=== PATIENT | male | born 1955 | race African-American/Black ===

== ENCOUNTER 2021-04-02 05:42 | Inpatient (IN) | payer MEDICAID, OTHER ==
[2021-04-02] VITALS (29 sets, daily range): BP systolic 87–146; BP diastolic 46–84
[~2021-04-02] VITALS: Ht 180.3 cm; Wt 79.4 kg
[2021-04-02 07:08] LABS: CHLORIDE 106 mEq/L (98-107)
[2021-04-02 07:11] LABS: BASOPHILS % 0.4 % (0.0-2.0); EOSINOPHILS % 0.8 % (0.0-5.0); HEMATOCRIT. 39.6 % (42.0-52.0); HEMOGLOBIN. 12.9 g/dL (14.0-18.0); MEAN CORPUSCULAR HEMOGLOBIN 28.2 pg (28.0-32.0); MEAN CORPUSCULAR VOLUME 86.4 fL (80.0-94.0); MEAN PLATELET VOLUME 9.8 fl (7.4-10.4); MONOCYTES % 8.2 % (2.0-8.0); NEUTROPHILS % 67.6 % (40.0-76.0); PLATELET 168 x1000/uL (130-400); RED BLOOD CELL COUNT 4.58 mill/uL (4.7-6.1); RED CELL DISTRIBUTION WIDTH 12.5 % (11.6-14.6)
[2021-04-02 07:13] LABS: PARTIAL THROMBOPLASTIN TIME 26.2 sec (23.4-31.0); PROTHROMBIN TIME 10.9 sec (9.6-11.0)
[2021-04-02 07:17] LABS: CLARITY URINE CLEAR (CLEAR); COLOR URINE YELLOW (YELLOW); KETONES URINE NEGATIVE (NEGATIVE); LEUKOCYTE ESTERASE URINE TRACE (NEGATIVE); NITRITE URINE NEGATIVE (NEGATIVE); OCCULT BLOOD URINE NEGATIVE (NEGATIVE); PROTEIN URINE 2+ (NEGATIVE); SPECIFIC GRAVITY URINE 1.025 (1.005-1.030)
[2021-04-02] MEDS ORDERED: SODIUM CHLORIDE 0.9% 1,000 ML IV SCH (07:55)
[2021-04-02] MEDS ORDERED: TRAM50TA3 PO (07:59)
[2021-04-02] MEDS ORDERED: GLIP10TA10 PO (07:59)
[2021-04-02] MEDS ORDERED: ASPI-1497 PO (07:59)
[2021-04-02] MEDS ORDERED: AMLO10TA80 PO (07:59)
[2021-04-02] MEDS ORDERED: ERTU15TA PO (07:59)
[2021-04-02] MEDS ORDERED: FURO40TA5 PO (07:59)
[2021-04-02] MEDS ORDERED: LOSA100T32 PO (07:59)
[2021-04-02] MEDS ORDERED: HYDR-4009 PO (08:12)
[2021-04-02] MEDS ORDERED: LIDOCAINE HCL/EPINEPHRINE 1%-EPI 1:100,000 20 ML VIAL INFIL SCH (11:00)
[2021-04-02] MEDS ORDERED: THROMBIN (BOVINE) 5000 UNITS/VIAL TOP ONE (11:05)
[2021-04-02] MEDS ORDERED: BACITRACIN 50,000 UNITS/VIAL ONE (11:07)
[2021-04-02] MEDS ORDERED: FENTANYL CITRATE/PF 50MCG/ML 2ML VIAL ONE (13:04)
[2021-04-02] MEDS ORDERED: SUCCINYLCHOLINE CHLORIDE 200MG/10ML IV ONE (13:04)
[2021-04-02] MEDS ORDERED: NEOSTIGMINE METHYLSULFATE 1MG/ML 10 ML VIAL ONE (13:04)
[2021-04-02] MEDS ORDERED: PROPOFOL 200MG/20ML VIAL IV ONE (13:04)
[2021-04-02] MEDS ORDERED: PHENYLEPHRINE HCL 10 MG/ML 1ML (IV VIAL) IV ONE (13:04)
[2021-04-02] MEDS ORDERED: SODIUM CHLORIDE 0.9% 10ML VIAL ONE (13:04)
[2021-04-02] MEDS ORDERED: CEFAZOLIN SODIUM 1000MG/VIAL ONE (13:04)
[2021-04-02] MEDS ORDERED: MIDAZOLAM HCL 2 MG/2 ML VIAL ONE (13:04)
[2021-04-02] MEDS ORDERED: DEXAMETHASONE 4MG/ML 1ML VIAL ONE ×2 (13:04→13:06)
[2021-04-02] MEDS ORDERED: METOCLOPRAMIDE HCL 10MG/2ML VIAL ONE (13:04)
[2021-04-02] MEDS ORDERED: ROCURONIUM BROMIDE 10MG/ML VIAL 5ML IV ONE ×2 (13:04→13:35)
[2021-04-02] MEDS ORDERED: ONDANSETRON HCL 4MG/2ML INJ ONE (13:04)
[2021-04-02] MEDS ORDERED: GLYCOPYRROLATE 0.2 MG/ML 2ML VIAL ONE (13:04)
[2021-04-02] MEDS ORDERED: HYDROMORPHONE HCL/PF 2MG/ML (OR) ONE (13:45)
[2021-04-02] MEDS ORDERED: LABETALOL HCL 5MG/ML VIAL 20ML IV ONE (15:20)
[2021-04-02] MEDS ORDERED: NALOXONE HCL 0.4MG/ML VIAL IV PRN (15:45)
[2021-04-02] MEDS: DEXT 5%/LACTATED RINGERS 1,000 ML IV SCH ×2 (16:41→23:13)
[2021-04-02] MEDS ORDERED: NICARDIPINE 100 MG in SODIUM CHLORIDE 0.9% 60 ML IV PRN (17:05)
[2021-04-02] MEDS ORDERED: ONDANSETRON HCL 4MG/2ML INJ IV PRN (17:15)
[2021-04-02] MEDS ORDERED: DIPHENHYDRAMINE 50MG/ML VIAL IV PRN (17:15)
[2021-04-02] MEDS ORDERED: DEXTROSE 50% WATER 50ML SYRINGE IV PRN (17:30)
[2021-04-02] MEDS ORDERED: IPRATROPIUM/ALBUTEROL 0.5-3(2.5)MG/3ML NEB HHN PRN (17:45)
[2021-04-02 19:02] LABS: BG BASE EXCESS -7.1 mmol/L (-2.0-2.0); BG CARBOXYHEMOGLOBIN 0.3 % (0.5-1.5); BG DEOXYHEMOGLOBIN 0.8 % (0.0-5.0); BG FRACTION INSPIRED OXYGEN 50; BG HCO3 ACT 19.1 mmol/L (22.0-26.0); BG METHEMOGLOBIN 0.4 % (0.0-1.5); BG OXYGEN SATURATION 99.2 % (92.0-98.5); BG OXYHEMOGLOBIN 98.5 % (94.0-97.0); BG PCO2 40.8 mmHg (35.0-45.0); BG PH 7.288 (7.350-7.450); BG PO2 223.8 mmHg (75.0-100.0); BG SAMPLE SITE ALINE; BG TOTAL HEMOGLOBIN 13.6 g/dL (12.0-18.0); BG VENT MODE VENT - CPAP
[2021-04-02] MEDS: MORPHINE SULFATE 4 MG/ML CPJ (NOT FOR IM USE) IV PRN (19:23)
[2021-04-02] MEDS ORDERED: NALOXONE INJ IV PRN (20:00)
[2021-04-02] MEDS ORDERED: HYDROMORPHONE PCA 10MG/50ML IV PRN (20:00)
[2021-04-02] MEDS ORDERED: DIPHENHYDRAMINE INJ IV PRN (20:00)
[2021-04-02] MEDS ORDERED: ONDANSETRON INJ IV PRN (20:00)
[2021-04-02] MEDS: BLOOD SUGAR DIAGNOSTIC STRIP TEST SCH (20:53)
[2021-04-02] MEDS: CEFAZOLIN 1000MG PREMIX 50 ML IV SCH (21:51)
[2021-04-02] MEDS: INSULIN LISPRO 100 UNITS/ML SUBCUT SCH (21:52)
[2021-04-02] MEDS ORDERED: CEFAZOLIN SODIUM 1000MG/VIAL IV SCH (22:00)
[2021-04-03] VITALS (35 sets, daily range): BP systolic 116–152; BP diastolic 47–90
[2021-04-03] MEDS: CLONIDINE 0.1MG TABLET PO PRN (04:58)
[2021-04-03 05:34] LABS: HEMATOCRIT. 33.7 % (42.0-52.0); HEMOGLOBIN. 10.9 g/dL (14.0-18.0); MEAN CORPUSCULAR HEMOGLOBIN 28.1 pg (28.0-32.0); MEAN CORPUSCULAR VOLUME 86.9 fL (80.0-94.0); MEAN PLATELET VOLUME 10.2 fl (7.4-10.4); PLATELET 167 x1000/uL (130-400); RED BLOOD CELL COUNT 3.88 mill/uL (4.7-6.1); RED CELL DISTRIBUTION WIDTH 12.4 % (11.6-14.6)
[2021-04-03 05:36] LABS: CHLORIDE 110 mEq/L (98-107)
[2021-04-03 05:44] LABS: LDL CHOLESTEROL 46 mg/dL (5-100)
[2021-04-03 05:45] LABS: HDL CHOLESTEROL 43 mg/dL (40-59)
[2021-04-03] MEDS: BLOOD SUGAR DIAGNOSTIC STRIP TEST SCH ×5 (06:03→21:14)
[2021-04-03] MEDS: CEFAZOLIN 1000MG PREMIX 50 ML IV SCH ×3 (06:07→22:22)
[2021-04-03] MEDS: INSULIN LISPRO 100 UNITS/ML SUBCUT SCH ×5 (06:08→22:22)
[2021-04-03] MEDS: DEXT 5%/LACTATED RINGERS 1,000 ML IV SCH ×3 (08:00→23:14)
[2021-04-03] MEDS ORDERED: PNEUMOCOCCAL 23-VAL P-SAC VAC 0.5 ML IM ONE (08:00)
[2021-04-03 20:43] LABS: PLATELET ESTIMATE NORMAL
[2021-04-04] VITALS: BP 105/69
[2021-04-04 04:00] VITALS: BP 179/85
[2021-04-04] MEDS: CLONIDINE 0.1MG TABLET PO PRN ×2 (05:53→22:00)
[2021-04-04] MEDS: CEFAZOLIN 1000MG PREMIX 50 ML IV SCH ×2 (05:56→13:57)
[2021-04-04 06:34] LABS: CHLORIDE 108 mEq/L (98-107)
[2021-04-04 06:46] LABS: BASOPHILS % 0.2 % (0.0-2.0); HEMATOCRIT. 31.6 % (42.0-52.0); HEMOGLOBIN. 10.4 g/dL (14.0-18.0); LYMPHOCYTES % 9.2 % (20.0-50.0); MEAN CORPUSCULAR HEMOGLOBIN 28.4 pg (28.0-32.0); MEAN CORPUSCULAR VOLUME 86.6 fL (80.0-94.0); MEAN PLATELET VOLUME 10.3 fl (7.4-10.4); MONOCYTES % 7.9 % (2.0-8.0); NEUTROPHILS % 82.7 % (40.0-76.0); PLATELET 170 x1000/uL (130-400); RED BLOOD CELL COUNT 3.65 mill/uL (4.7-6.1); RED CELL DISTRIBUTION WIDTH 12.9 % (11.6-14.6)
[2021-04-04] MEDS: BLOOD SUGAR DIAGNOSTIC STRIP TEST SCH ×4 (07:40→21:00)
[2021-04-04 08:00] VITALS: BP 153/75
[2021-04-04] MEDS: DEXT 5%/LACTATED RINGERS 1,000 ML IV SCH (08:00)
[2021-04-04] MEDS: INSULIN LISPRO 100 UNITS/ML SUBCUT SCH ×4 (09:08→22:59)
[2021-04-04 12:00] VITALS: BP 123/60
[2021-04-04 16:00] VITALS: BP 150/70
[2021-04-04] MEDS ORDERED: BISACODYL 5MG TABLET PO PRN (17:30)
[2021-04-04] MEDS: DOCUSATE SODIUM 100MG CAPSULE PO SCH (18:07)
[2021-04-04 20:00] VITALS: BP 163/75
[2021-04-05] VITALS: BP 158/85
[2021-04-05 04:00] VITALS: BP 153/70
[2021-04-05] MEDS: AMLODIPINE 10MG TABLET PO SCH (04:34)
[2021-04-05] MEDS: BLOOD SUGAR DIAGNOSTIC STRIP TEST SCH ×4 (06:41→20:46)
[2021-04-05 08:05] LABS: CHLORIDE 107 mEq/L (98-107)
[2021-04-05] MEDS ORDERED: ACETAMINOPHEN 325MG TABLET PO PRN (08:30)
[2021-04-05] MEDS: DOCUSATE SODIUM 100MG CAPSULE PO SCH ×2 (08:58→17:46)
[2021-04-05] MEDS: FAMOTIDINE 20MG TABLET PO SCH ×2 (08:58→20:46)
[2021-04-05] MEDS: INSULIN LISPRO 100 UNITS/ML SUBCUT SCH ×4 (09:03→20:55)
[2021-04-05 10:38] LABS: BASOPHILS % 0.3 % (0.0-2.0); EOSINOPHILS % 0.1 % (0.0-5.0); HEMATOCRIT. 30.9 % (42.0-52.0); HEMOGLOBIN. 9.9 g/dL (14.0-18.0); LYMPHOCYTES % 12.3 % (20.0-50.0); MEAN CORPUSCULAR HEMOGLOBIN 27.9 pg (28.0-32.0); MEAN PLATELET VOLUME 9.7 fl (7.4-10.4); NEUTROPHILS % 78.3 % (40.0-76.0); RED BLOOD CELL COUNT 3.55 mill/uL (4.7-6.1); RED CELL DISTRIBUTION WIDTH 12.5 % (11.6-14.6)
[2021-04-05 10:42] LABS: PLATELET 174 x1000/uL (130-400)
[2021-04-05 12:00] VITALS: BP 152/71
[2021-04-05] MEDS: CLONIDINE 0.1MG TABLET PO PRN (13:36)
[2021-04-05] MEDS: HYDROCODONE/ACETAMINOPHEN 5/325MG TABLET PO PRN ×2 (13:37→17:49)
[2021-04-05 16:00] VITALS: BP 146/69
[2021-04-05] MEDS ORDERED: POLYETHYLENE GLYCOL 3350 (17GM) 1 DOSE PACK PO NR (17:30)
[2021-04-05] MEDS: MORPHINE SULFATE 4 MG/ML CPJ (NOT FOR IM USE) IV PRN (23:49)
[2021-04-06] VITALS: BP 147/73
[2021-04-06] MEDS: HYDROCODONE/ACETAMINOPHEN 5/325MG TABLET PO PRN ×5 (01:42→19:04)
[2021-04-06 04:00] VITALS: BP 132/62
[2021-04-06] MEDS: BLOOD SUGAR DIAGNOSTIC STRIP TEST SCH ×4 (07:02→21:36)
[2021-04-06 08:00] VITALS: BP 162/66
[2021-04-06] MEDS: DOCUSATE SODIUM 100MG CAPSULE PO SCH ×2 (09:48→17:29)
[2021-04-06] MEDS: BISACODYL 5MG TABLET PO SCH (09:49)
[2021-04-06] MEDS: FAMOTIDINE 20MG TABLET PO SCH ×2 (09:49→21:44)
[2021-04-06] MEDS: AMLODIPINE 10MG TABLET PO SCH (09:49)
[2021-04-06] MEDS: INSULIN LISPRO 100 UNITS/ML SUBCUT SCH ×4 (09:54→21:45)
[2021-04-06 12:00] VITALS: BP 122/52
[2021-04-06 16:00] VITALS: BP 152/60
[2021-04-06] MEDS ORDERED: LACTULOSE 20G/30ML UDC PO NR (16:30)
[2021-04-06] MEDS ORDERED: LACTULOSE 20G/30ML UDC PO PRN (16:30)
[2021-04-06] MEDS: CLONIDINE 0.1MG TABLET PO PRN (17:29)
[2021-04-06] MEDS: METFORMIN HCL 500MG TABLET PO SCH (17:29)
[2021-04-06 20:00] VITALS: BP 159/72
[2021-04-07] VITALS: BP 156/72
[2021-04-07 04:00] VITALS: BP 165/96
[2021-04-07] MEDS: MORPHINE SULFATE 4 MG/ML CPJ (NOT FOR IM USE) IV PRN ×4 (04:06→21:48)
[2021-04-07] MEDS: CLONIDINE 0.1MG TABLET PO PRN ×3 (04:07→18:13)
[2021-04-07] MEDS: BLOOD SUGAR DIAGNOSTIC STRIP TEST SCH ×4 (07:39→21:24)
[2021-04-07 08:00] VITALS: BP 152/68
[2021-04-07] MEDS: BISACODYL 5MG TABLET PO SCH (08:49)
[2021-04-07] MEDS: METFORMIN HCL 500MG TABLET PO SCH ×2 (08:50→18:06)
[2021-04-07] MEDS: DOCUSATE SODIUM 100MG CAPSULE PO SCH ×2 (08:50→18:06)
[2021-04-07] MEDS: FAMOTIDINE 20MG TABLET PO SCH ×2 (08:50→21:24)
[2021-04-07] MEDS: AMLODIPINE 10MG TABLET PO SCH (08:53)
[2021-04-07] MEDS: INSULIN LISPRO 100 UNITS/ML SUBCUT SCH ×4 (09:04→21:00)
[2021-04-07] MEDS: LOSARTAN POTASSIUM 50 MG TABLET PO SCH (12:56)
[2021-04-07 16:00] VITALS: BP 153/78
[2021-04-07 20:37] VITALS: BP 141/81
[2021-04-08 00:43] VITALS: BP 160/60
[2021-04-08] MEDS: CLONIDINE 0.1MG TABLET PO PRN ×3 (00:47→13:41)
[2021-04-08] MEDS: HYDROCODONE/ACETAMINOPHEN 5/325MG TABLET PO PRN ×2 (00:47→06:26)
[2021-04-08 04:00] VITALS: BP 152/72
[2021-04-08] MEDS: MORPHINE SULFATE 4 MG/ML CPJ (NOT FOR IM USE) IV PRN ×6 (04:16→22:27)
[2021-04-08 06:39] LABS: BASOPHILS % 0.4 % (0.0-2.0); EOSINOPHILS % 0.9 % (0.0-5.0); HEMATOCRIT. 27.7 % (42.0-52.0); HEMOGLOBIN. 9.2 g/dL (14.0-18.0); LYMPHOCYTES % 13.6 % (20.0-50.0); MEAN CORPUSCULAR HEMOGLOBIN 28.9 pg (28.0-32.0); MEAN CORPUSCULAR VOLUME 87.5 fL (80.0-94.0); MONOCYTES % 10.6 % (2.0-8.0); NEUTROPHILS % 74.5 % (40.0-76.0); PLATELET 220 x1000/uL (130-400); RED BLOOD CELL COUNT 3.17 mill/uL (4.7-6.1); RED CELL DISTRIBUTION WIDTH 13.2 % (11.6-14.6)
[2021-04-08 07:00] LABS: CHLORIDE 106 mEq/L (98-107)
[2021-04-08] MEDS: BLOOD SUGAR DIAGNOSTIC STRIP TEST SCH ×4 (07:50→20:32)
[2021-04-08] MEDS: INSULIN LISPRO 100 UNITS/ML SUBCUT SCH ×4 (07:50→20:32)
[2021-04-08 08:00] VITALS: BP 109/68
[2021-04-08] MEDS: DOCUSATE SODIUM 100MG CAPSULE PO SCH ×2 (08:05→18:18)
[2021-04-08] MEDS: FAMOTIDINE 20MG TABLET PO SCH ×2 (08:05→20:32)
[2021-04-08] MEDS: BISACODYL 5MG TABLET PO SCH (08:05)
[2021-04-08] MEDS: AMLODIPINE 10MG TABLET PO SCH (08:05)
[2021-04-08] MEDS: METFORMIN HCL 500MG TABLET PO SCH ×2 (08:05→18:18)
[2021-04-08] MEDS: LOSARTAN POTASSIUM 50 MG TABLET PO SCH (08:05)
[2021-04-08] MEDS: SODIUM CHLORIDE 0.9% 1,000 ML IV SCH (12:19)
[2021-04-08 16:00] VITALS: BP 138/69
[2021-04-08 20:21] VITALS: BP 130/71
[2021-04-09] MEDS: SODIUM CHLORIDE 0.9% 1,000 ML IV SCH ×2 (00:42→11:58)
[2021-04-09] MEDS: HYDROCODONE/ACETAMINOPHEN 5/325MG TABLET PO PRN ×2 (00:44→23:26)
[2021-04-09 02:38] VITALS: BP 149/71
[2021-04-09 05:24] VITALS: BP 150/74
[2021-04-09] MEDS: MORPHINE SULFATE 4 MG/ML CPJ (NOT FOR IM USE) IV PRN ×6 (05:38→21:08)
[2021-04-09] MEDS: BLOOD SUGAR DIAGNOSTIC STRIP TEST SCH ×4 (07:20→21:03)
[2021-04-09 08:00] VITALS: BP 170/74
[2021-04-09] MEDS: DOCUSATE SODIUM 100MG CAPSULE PO SCH ×2 (09:13→17:21)
[2021-04-09] MEDS: LOSARTAN POTASSIUM 50 MG TABLET PO SCH (09:13)
[2021-04-09] MEDS: BISACODYL 5MG TABLET PO SCH (09:14)
[2021-04-09] MEDS: AMLODIPINE 10MG TABLET PO SCH (09:14)
[2021-04-09] MEDS: METFORMIN HCL 500MG TABLET PO SCH ×2 (09:14→17:51)
[2021-04-09] MEDS: INSULIN LISPRO 100 UNITS/ML SUBCUT SCH ×4 (09:29→21:00)
[2021-04-09] MEDS: FAMOTIDINE 20MG TABLET PO SCH ×2 (11:01→21:03)
[2021-04-09 12:00] VITALS: BP 110/68
[2021-04-09 20:00] VITALS: BP 137/72
[2021-04-10] VITALS: BP 149/65
[2021-04-10] MEDS: SODIUM CHLORIDE 0.9% 1,000 ML IV SCH (01:02)
[2021-04-10] MEDS: MORPHINE SULFATE 4 MG/ML CPJ (NOT FOR IM USE) IV PRN ×5 (02:57→21:17)
[2021-04-10 04:00] VITALS: BP 153/58
[2021-04-10 06:35] LABS: CHLORIDE 106 mEq/L (98-107)
[2021-04-10] MEDS: METFORMIN HCL 500MG TABLET PO SCH ×2 (06:59→17:41)
[2021-04-10] MEDS: HYDROCODONE/ACETAMINOPHEN 5/325MG TABLET PO PRN ×2 (07:01→17:42)
[2021-04-10 07:04] LABS: BASOPHILS % 0.3 % (0.0-2.0); EOSINOPHILS % 0.7 % (0.0-5.0); HEMATOCRIT. 25.9 % (42.0-52.0); HEMOGLOBIN. 8.3 g/dL (14.0-18.0); LYMPHOCYTES % 18.4 % (20.0-50.0); MEAN CORPUSCULAR HEMOGLOBIN 28.6 pg (28.0-32.0); MEAN CORPUSCULAR VOLUME 88.9 fL (80.0-94.0); MEAN PLATELET VOLUME 9.5 fl (7.4-10.4); MONOCYTES % 9.4 % (2.0-8.0); NEUTROPHILS % 71.2 % (40.0-76.0); PLATELET 216 x1000/uL (130-400); RED BLOOD CELL COUNT 2.91 mill/uL (4.7-6.1); RED CELL DISTRIBUTION WIDTH 13.6 % (11.6-14.6)
[2021-04-10] MEDS: CLONIDINE 0.1MG TABLET PO PRN (07:04)
[2021-04-10] MEDS: BLOOD SUGAR DIAGNOSTIC STRIP TEST SCH ×4 (07:05→21:16)
[2021-04-10 08:00] VITALS: BP 148/73
[2021-04-10] MEDS: LOSARTAN POTASSIUM 50 MG TABLET PO SCH (08:30)
[2021-04-10] MEDS: FAMOTIDINE 20MG TABLET PO SCH ×2 (08:30→21:15)
[2021-04-10] MEDS: BISACODYL 5MG TABLET PO SCH (08:30)
[2021-04-10] MEDS: DOCUSATE SODIUM 100MG CAPSULE PO SCH ×2 (08:30→17:41)
[2021-04-10] MEDS: AMLODIPINE 10MG TABLET PO SCH (08:30)
[2021-04-10] MEDS: INSULIN LISPRO 100 UNITS/ML SUBCUT SCH ×4 (08:34→21:24)
[2021-04-10 12:00] VITALS: BP 136/70
[2021-04-10 16:00] VITALS: BP 148/72
[2021-04-10 20:00] VITALS: BP 133/58
[2021-04-11] VITALS: BP 164/71
[2021-04-11] MEDS: CLONIDINE 0.1MG TABLET PO PRN (00:44)
[2021-04-11] MEDS: MORPHINE SULFATE 4 MG/ML CPJ (NOT FOR IM USE) IV PRN ×5 (00:46→17:13)
[2021-04-11] MEDS: SODIUM CHLORIDE 0.9% 1,000 ML IV SCH ×2 (01:31→13:30)
[2021-04-11 04:00] VITALS: BP 167/73
[2021-04-11] MEDS ORDERED: CLONIDINE 0.1MG TABLET PO PRN (05:30)
[2021-04-11 06:51] LABS: BASOPHILS % 0.3 % (0.0-2.0); EOSINOPHILS % 1.2 % (0.0-5.0); HEMATOCRIT. 26.4 % (42.0-52.0); HEMOGLOBIN. 8.7 g/dL (14.0-18.0); LYMPHOCYTES % 16.8 % (20.0-50.0); MEAN CORPUSCULAR HEMOGLOBIN 29.2 pg (28.0-32.0); MEAN CORPUSCULAR VOLUME 88.9 fL (80.0-94.0); MEAN PLATELET VOLUME 9.2 fl (7.4-10.4); MONOCYTES % 10.4 % (2.0-8.0); NEUTROPHILS % 71.3 % (40.0-76.0); PLATELET 230 x1000/uL (130-400); RED BLOOD CELL COUNT 2.97 mill/uL (4.7-6.1); RED CELL DISTRIBUTION WIDTH 13.7 % (11.6-14.6)
[2021-04-11 06:52] LABS: CHLORIDE 106 mEq/L (98-107)
[2021-04-11] MEDS: BLOOD SUGAR DIAGNOSTIC STRIP TEST SCH ×3 (07:12→17:20)
[2021-04-11 08:00] VITALS: BP 152/65
[2021-04-11] MEDS: DOCUSATE SODIUM 100MG CAPSULE PO SCH (09:09)
[2021-04-11] MEDS: LOSARTAN POTASSIUM 50 MG TABLET PO SCH (09:10)
[2021-04-11] MEDS: METFORMIN HCL 500MG TABLET PO SCH ×2 (09:10→18:19)
[2021-04-11] MEDS: AMLODIPINE 10MG TABLET PO SCH (09:10)
[2021-04-11] MEDS: FAMOTIDINE 20MG TABLET PO SCH (09:10)
[2021-04-11] MEDS: BISACODYL 5MG TABLET PO SCH (09:10)
[2021-04-11] MEDS: INSULIN LISPRO 100 UNITS/ML SUBCUT SCH ×3 (09:16→18:26)
[2021-04-11] MEDS ORDERED: MORPHINE SULFATE 4 MG/ML CPJ (NOT FOR IM USE) IV PRN (09:45)
[2021-04-11] MEDS ORDERED: POLYETHYLENE GLYCOL 3350 (17GM) 1 DOSE PACK PO NR (10:00)
[2021-04-11 12:00] VITALS: BP 149/95
[2021-04-11 16:00] VITALS: BP 137/60
[2021-04-11] MEDS ORDERED: HYDR-4009 PO (16:03)
[2021-04-11] MEDS ORDERED: LOSA50TA3 PO (16:03)
[2021-04-11 19:06] VITALS: BP 137/60
== END 2021-04-11 20:37 | disposition home health service (06) | DRG 304 ==
LOC: OR 05:42 → MICUNO 16:09 → 6EST 04-03 17:02
PROVIDERS: ADMIT Internal Medicine; ATTEND Internal Medicine
PROC: 0SG0071 Fusion of Lumbar Vertebral Joint with Autologous Tissue Substitute, Posterior Approach, Posterior Column, Open Approach (ICD-10-PCS; principal; 2021-04-02)
PROC: 0SG3071 Fusion of Lumbosacral Joint with Autologous Tissue Substitute, Posterior Approach, Posterior Column, Open Approach (ICD-10-PCS; 2021-04-02)
PROC: 01NB0ZZ Release Lumbar Nerve, Open Approach (ICD-10-PCS; 2021-04-02)
PROC: 4A11X4G Monitoring of Peripheral Nervous Electrical Activity, Intraoperative, External Approach (ICD-10-PCS; 2021-04-02)
PROC: 0BH17EZ Insertion of Endotracheal Airway into Trachea, Via Natural or Artificial Opening (ICD-10-PCS; 2021-04-02)
PROC: 5A1935Z Respiratory Ventilation, Less than 24 Consecutive Hours (ICD-10-PCS; 2021-04-02)
DX: M48.061 Spinal stenosis, lumbar region without neurogenic claudication (principal); J96.01 Acute respiratory failure with hypoxia; M51.27 Other intervertebral disc displacement, lumbosacral region; M47.816 Spondylosis without myelopathy or radiculopathy, lumbar region; K59.00 Constipation, unspecified; M47.817 Spondylosis without myelopathy or radiculopathy, lumbosacral region; E11.9 Type 2 diabetes mellitus without complications; I10 Essential (primary) hypertension; M51.26 Other intervertebral disc displacement, lumbar region; M48.07 Spinal stenosis, lumbosacral region
CPT/HCPCS: 36415; 36600; 71045; 72100; 76000; 80048; 80053; 80061; 81003; 82375; 82805; 82962; 83036; 84443; 85025; 86850; 86900; 88305; 88311; 90732; 93005; 93970; 94002; 95863; 95925; 95926; 95928; 95929; 95940; 97116; 97162; 97166; 97530; 97535; C1713; J0330; J0690; J1100; J1170; J1200; J1815; J2250; J2270; J2370; J2405; J2704; J2710; J2765; J3010; J3490; J7030; J7050; J7121; C1762